=== PATIENT | male | born 1965 | race African-American/Black ===

== ENCOUNTER 2021-03-08 16:36 | Emergency (ER) | payer MEDICAID, MEDICARE, OTHER ==
[~2021-03-08] VITALS: Ht 193 cm; Wt 75.0 kg
[~2021-03-08 16:36] MED LIST: RISP4TAB34 PO; TRAZ-175 PO
[2021-03-08 16:43] VITALS: BP 121/84
== END 2021-03-08 17:07 | disposition home or self-care (01) ==
LOC: ED 17:00
DX: S43.005A Unspecified dislocation of left shoulder joint, initial encounter (principal); X58.XXXA Exposure to other specified factors, initial encounter; Y93.89 Activity, other specified; Y92.89 Other specified places as the place of occurrence of the external cause; Y99.8 Other external cause status
CPT/HCPCS: 99283